=== PATIENT | male | born 1975 | race Caucasian/White ===

== ENCOUNTER 2018-09-12 07:56 | Emergency (ER) | payer OTHER ==
[~2018-09-12] VITALS: Ht 172.7 cm; Wt 140.6 kg
[2018-09-12] MEDS ORDERED: CELECOXIB200 MG PO (08:22)
[2018-09-12] MEDS ORDERED: CELEBREX50 MG PO (08:22)
== END 2018-09-12 09:22 | disposition home or self-care (01) ==
LOC: ED 07:56
DX: S93.402A Sprain of unspecified ligament of left ankle, initial encounter (principal); S00.03XA Contusion of scalp, initial encounter; Z90.49 Acquired absence of other specified parts of digestive tract; Z79.899 Other long term (current) drug therapy; V87.8XXA Person injured in other specified noncollision transport accidents involving motor vehicle (traffic), initial encounter
CPT/HCPCS: 73610; 99284